=== PATIENT | female | born 1970 | race Caucasian/White ===

== ENCOUNTER 2017-10-27 18:47 | Inpatient (IN) | payer OTHER ==
[~2017-10-27] VITALS: Ht 162.6 cm; Wt 73.6 kg
[2017-10-27] MEDS ORDERED: synthroid (19:08)
[2017-10-27] MEDS ORDERED: cozaar (19:08)
[2017-10-27] MEDS ORDERED: NITROGLYCERIN SUBLINGUAL 0.4 MG BOTTLE OF 25. SL PRN ×2 (19:15→21:45)
[2017-10-27] MEDS ORDERED: ASPIRIN 81 MG TAB.CHEW PO ONE (19:15)
[2017-10-27 19:51] LABS: AMPHETAMINE/METHAMPHETAMINE NEG (NEG); BARBITURATES NEG (NEG); BENZODIAZEPINES NEG (NEG); CANNABINOIDS NEG (NEG); COCAINE NEG (NEG); METHADONE NEG (NEG); OPIATES NEG (NEG); PHENCYCLIDINE NEG (NEG)
--- NOTE | 2017-10-27 19:57 | PHYS DOC ---
General Chief Complaint: RIB PAIN Stated Complaint: CHEST/SIDE PAIN Time Seen by MD: 18:50 Source: patient Exam Limitations: no limitations Problems: History of Present Illness Initial Comments 47-year-old female comes in the emergency department complaining of left-sided chest pain. Patient is here with her spouse, they state that approximately 1815 they were walking in a hardware store when the patient developed sudden onset severe left lateral chest pain. Pain described as sharp and stabbing the moderate to severe in intensity and worse with deep breaths non-reproducible with positional changes. She had concomitant dyspnea and feeling of warmth no sweating no nausea arm or neck symptoms. She had surgery on her right leg about a month ago and is concerned for possible blood clot. Patient has hypertension she's never smoked, her father had his first WA before 50 years of age. Patient has no prior cardiology evaluation. Timing/Duration: other Severity: moderate Modifying Factors: improves with other Associated Symptoms: chest pain, shortness of breath Allergies: Coded Allergies: No Known Drug Allergies (Unverified , 10/27/17) Past Medical History Medical History: hypertension, other (hypothyroid) Surgical History: noncontributory Social History Smoker: non-smoker Alcohol: none Drugs: none Review of Systems Constitutional: denies chills, denies fever Respiratory: denies cough Cardiovascular: see HPI, denies palpitations, denies syncope Gastrointestinal: denies abdominal pain, denies nausea, denies vomiting Genitourinary: denies dysuria, denies frequency, denies hematuria Musculoskeletal: denies back pain, denies joint swelling, denies neck pain Psychiatric/Neurological: denies headache, denies numbness, denies paresthesia Hematologic/Lymphatic: denies blood clots, denies easy bleeding, denies easy bruising Physical Exam General Appearance: WD/WN, no apparent distress Eyes: bilateral eye normal inspection, bilateral eye PERRL, bilateral eye EOMI Ear, Nose, Throat: hearing grossly normal, normal ENT inspection Neck: non-tender, supple Respiratory: normal breath sounds, no respiratory distress Cardiovascular: normal peripheral pulses, regular rate, rhythm Gastrointestinal: non tender, soft Back: no CVA tenderness, no vertebral tenderness Extremities: normal range of motion, non-tender, normal inspection, no pedal edema, no calf tenderness, other (boot on right ankle/foot) Neurologic/Psychiatric: investigations manager II-XII nml as tested, no motor/sensory deficits, alert, normal mood/affect, oriented x 3 Skin: normal color, warm/dry Orders, Labs, Meds EKG: Normal sinus rhythm 91 bpm, no ST segment elevation interpreted by me. PA and lateral chest: No acute cardiopulmonary process noted interpreted by me Reassuring labs, d-dimer 1.2, CTA of the chest indicated PATIENT: COREY SOUSA ACCOUNT: [id number] : 1970 LOCATION: ER AGE: 47 SEX: F EXAM STATUS: PRE ER ORD. PHYSICIAN: RJ SEWELL DO REASON: L cp, elev d-dimer PROCEDURE: CT ANGIOGRAPHY CHEST Indication: Left-sided chest pain. Elevated d-dimer. TECHNIQUE: CT angiogram chest with 75 mL of Omnipaque 300 with multiplanar MIP reformats. COMPARISON: None FINDINGS: Slightly suboptimal PE study due to contrast bolus timing. However, there are no central, segmental or subsegmental filling defects in the pulmonary arteries. Heart is normal in size. No pericardial or pleural effusion. Clear neck base. No axillary, mediastinal or hilar adenopathy. Small sliding hiatal hernia. Visualized sections through the liver, spleen, adrenals, pancreas and kidneys within normal limits. Nonobstructing 5 mm stone in the left kidney. No focal consolidation or interstitial abnormalities. No suspicious bony lesion. IMPRESSION: 1. Slightly suboptimal PE study. However, no definite evidence of PE. 2. No pneumonia or signs of pulmonary infarct. 3. Partially visualized left kidney shows nonobstructing stone. Electronically signed by: Abelardo Mathews DO (10/27/2017 9:26 PM) [facility] DICTATED AND SIGNED BY: ABELARDO MATHEWS DO DATE: 10/27/172120 CC: GARRETT WAITE DO; RJ SEWELL DO ~ I discussed patient's symptoms and the likelihood that they were pleuritic in nature. Nevertheless observation admission indicated due to risk factors and symptoms patient is agreeable. 2138: Dr. Antony accepts inpatient telemetry admission for chest pain to follow serial cardiac enzymes and cardiology consultation in the morning. Departure Time of Disposition: 21:49 Disposition: 09 ADMITTED INPATIENT Condition: STABLE RJ SEWELL DO Oct 27, 2017 19:57
[2017-10-27 20:00] LABS: ALBUMIN 3.6 g/dL (3.4-5.0); ALBUMIN/GLOBULIN RATIO 0.9 (1.0-1.7); CREATININE 0.6 mg/dL (0.6-1.0); GFR 106.3; POTASSIUM 5.1 mmol/L (3.5-5.1); TOTAL BILIRUBIN 0.3 mg/dL (0.2-1.0); TOTAL PROTEIN 7.4 g/dL (6.4-8.2)
[2017-10-27 20:05] LABS: BILIRUBIN,URINE NEG (NEG); CLARITY,URINE CLEAR; COLOR,URINE STRAW; GLUCOSE,URINE NEG (NEG)
[2017-10-27 20:06] LABS: BACTERIA,URINE FEW /HPF (0-FEW); NITRITE,URINE NEG (NEG); SQUAMOUS EPITHELIAL CELL,UR MANY /LPF; UROBILINOGEN,URINE 0.2 mg/dL (0.2 mg/dL); WBC,URINE OCC /HPF (0-4)
[2017-10-27 20:13] LABS: BASO # 0.1 x10^3/uL (0.0-0.2); BASO % 1 % (0-3); EOS # 0.3 x10^3/uL (0.0-0.7); EOS % 3 % (0-3); HEMATOCRIT 38.5 % (36.0-47.0); HEMOGLOBIN 13.3 g/dL (12.0-15.5); LYMPH # 2.2 x10^3/uL (1.0-4.8); LYMPH % 23 % (24-48); MEAN CORPUSCULAR HEMOGLOBIN 30 pg (25-35); MEAN CORPUSCULAR HGB CONC 35 g/dL (31-37); MEAN CORPUSCULAR VOLUME 87 fL (79-100); MONO # 0.5 x10^3/uL (0.0-1.1); MONO % 5 % (0-9); NEUT # 6.7 x10^3uL (1.8-7.7); NEUT % 69 % (31-73); PLATELET COUNT 262 x10^3/uL (140-400); RED BLOOD COUNT 4.41 x10^6/uL (3.50-5.40); RED CELL DISTRIBUTION WIDTH 13.2 % (11.5-14.5); WHITE BLOOD COUNT 9.8 x10^3/uL (4.0-11.0)
[2017-10-27] MEDS ORDERED: IOHEXOL 300 MG/ML 75 ML VIAL. IV ONE (20:45)
--- NOTE | 2017-10-27 21:29 | RAD ---
Indication: Left-sided chest pain. Elevated d-dimer. TECHNIQUE: CT angiogram chest with 75 mL of Omnipaque 300 with multiplanar MIP reformats. COMPARISON: None FINDINGS: Slightly suboptimal PE study due to contrast bolus timing. However, there are no central, segmental or subsegmental filling defects in the pulmonary arteries. Heart is normal in size. No pericardial or pleural effusion. Clear neck base. No axillary, mediastinal or hilar adenopathy. Small sliding hiatal hernia. Visualized sections through the liver, spleen, adrenals, pancreas and kidneys within normal limits. Nonobstructing 5 mm stone in the left kidney. No focal consolidation or interstitial abnormalities. No suspicious bony lesion. IMPRESSION: 1. Slightly suboptimal PE study. However, no definite evidence of PE. 2. No pneumonia or signs of pulmonary infarct. 3. Partially visualized left kidney shows nonobstructing stone. Electronically signed by: Abelardo Mathews DO (10/27/2017 9:26 PM) [facility]
[2017-10-27] MEDS ORDERED: ONDANSETRON PF 4 MG/2 ML VIAL. IV PRN (21:45)
[2017-10-27] MEDS ORDERED: ACETAMINOPHEN 325 MG TABLET PO PRN (21:45)
[2017-10-27 22:30] VITALS: BP 111/77
--- NOTE | 2017-10-27 23:40 | NUR ---
The patient, COREY SOUSA, 47 y/o, F admitted by EMORY SILVERIO MD, was given written information regarding hospital policies, unit procedures and contact persons. Patient states that she had chest pain but it has sense went away. Patient has no cardiac history but her father of an UT in his 60's. Call light within reach and at bedside. Valuables were checked and left with patient.
[2017-10-27] MEDS ORDERED: LEVO100T5 PO (23:51)
[2017-10-27] MEDS ORDERED: ASPI81TA50 PO (23:52)
[2017-10-27] MEDS ORDERED: LOSA25TA PO (23:52)
[2017-10-28 05:19] VITALS: BP 127/81
[2017-10-28 06:25] LABS: BASO % 1 % (0-3); EOS # 0.4 x10^3/uL (0.0-0.7); EOS % 4 % (0-3); HEMATOCRIT 38.6 % (36.0-47.0); HEMOGLOBIN 13.2 g/dL (12.0-15.5); LYMPH # 2.4 x10^3/uL (1.0-4.8); LYMPH % 29 % (24-48); MEAN CORPUSCULAR HEMOGLOBIN 30 pg (25-35); MEAN CORPUSCULAR HGB CONC 34 g/dL (31-37); MEAN CORPUSCULAR VOLUME 88 fL (79-100); MONO # 0.4 x10^3/uL (0.0-1.1); MONO % 6 % (0-9); NEUT # 4.9 x10^3uL (1.8-7.7); NEUT % 61 % (31-73); PLATELET COUNT 256 x10^3/uL (140-400); RED BLOOD COUNT 4.37 x10^6/uL (3.50-5.40); RED CELL DISTRIBUTION WIDTH 13.6 % (11.5-14.5); WHITE BLOOD COUNT 8.1 x10^3/uL (4.0-11.0)
[2017-10-28 06:33] LABS: CALCIUM 8.6 mg/dL (8.5-10.1); CREATININE 0.6 mg/dL (0.6-1.0); GFR 106.3; POTASSIUM 3.7 mmol/L (3.5-5.1)
--- NOTE | 2017-10-28 06:56 | NUR ---
Consult called to Dr. Nguyễn's office. Answering service called.
[2017-10-28] MEDS ORDERED: LEVOTHYROXINE 100 MCG TABLET PO SCH (07:00)
--- NOTE | 2017-10-28 08:28 | RAD ---
2 view CXR: Clinical indications: Left lateral chest wall pain. Findings: No acute lung infiltrate or pleural effusion or pulmonary edema or lung mass or pneumothorax is seen. A pericardial cyst or fat pad is seen within the right cardiophrenic angle. The heart size, pulmonary vasculature, mediastinum and both hima are otherwise unremarkable. The osseous structures appear intact. Impression: No acute radiographic abnormality is seen.
[2017-10-28] MEDS ORDERED: LOSARTAN 25 MG TABLET. PO SCH (09:00)
[2017-10-28] MEDS ORDERED: ASPIRIN ENTERIC COATED 81 MG TABLET.DR. PO SCH (09:00)
[2017-10-28 10:47] VITALS: BP 103/70
[2017-10-28 15:13] VITALS: BP 113/73
--- NOTE | 2017-10-28 18:22 | RAD ---
CT study of the abdomen and pelvis without contrast HISTORY: Left-sided flank pain for 2 days. Left-sided chest pain. TECHNIQUE: Noncontrast helical CT scanning of the abdomen and pelvis was performed. Without contrast, the sensitivity to detect organ pathology and GI tract pathology is decreased. PQRS compliance Statement One or more of the following individualized dose reduction techniques were utilized for this study: 1. Automated exposure control 2. Adjustment of the mA and/or kV according to patient size 3. Use of iterative reconstruction technique COMPARISON: None available. FINDINGS: The liver and spleen and pancreas are homogeneous in appearance on this noncontrast study. The gallbladder is small. No extra hepatic biliary ductal dilatation is seen. No adrenal mass is evident. Bilateral renal stones are seen. No hydronephrosis or hydroureter or ureteral stone is seen. No focal aneurysmal dilatation of the abdominal aorta is seen. No enlarged abdominal or pelvic lymphadenopathy is evident. Varicosities around the left kidney and spleen are seen. No dominant cyst or mass of the right ovary seen. There is a dominant cyst of the left ovary which measures 3.3 cm in size. Urinary bladder wall is smooth. No obstructive bowel pattern is seen. The appendix is normal. Small hiatal hernia is seen. No free air or free fluid is seen. No mesenteric edema is evident. No lung base infiltrate is seen. No osteolytic process is seen. IMPRESSION: Bilateral nonobstructing renal stones. No hydronephrosis or hydroureter. 3.3 cm left ovarian cyst. Electronically signed by: Geoff Delong MD (10/28/2017 6:19 PM) [facility]
--- NOTE | 2017-10-28 18:22 | NUR ---
NSG NOTE; DISCHARGE VERBAL AND WRITTEN DISCHARGE INSTRUCTIONS GIVEN TO PT AND HER WITH VERBAL UNDERSTANDING DISCHARGE TO HOME VIA AMB AT 1620 ACCOMP BY
--- NOTE | 2017-10-28 18:35 | RAD ---
3 view left rib detail series and PA view chest x-ray HISTORY: Fall. Left-sided rib pain for 2 days FINDINGS: There are mild deformities of the lateral aspect of the fifth and sixth and seventh ribs. No radiolucent fracture line is seen otherwise. This may indicate nondisplaced rib fractures. Chest x-ray demonstrates no pleural effusion or pneumothorax or or acute lung infiltrate or pulmonary edema. Pericardial cyst or fat pad of the right cardiophrenic angle is evident. IMPRESSION: Nondisplaced left rib fractures. Electronically signed by: Geoff Delong MD (10/28/2017 6:31 PM) [facility]
--- NOTE | 2017-10-28 19:11 | SSS ---
ADMIT DATE: 10/27/2017 HISTORY OF PRESENT ILLNESS: The patient is a 47-year-old female patient who came with left-sided chest pain. She was walking in a hardware store when the patient developed sudden onset of severe left-sided chest pain. The pain is described as a sharp, stabbing, moderate to severe in intensity and worse with deep breath, nonreproducible with positional changes. She had concomitant dyspnea and feeling of warmth. No sweating, nausea or neck pain. She had had surgery to her right leg about a month ago and is concerned for a possible blood clot. The patient has hypertension, but has never smoked. Her father had first ID before 50 years of age and the patient has no prior cardiology evaluation. She was extensively investigated in the Emergency Room and basically has had 3 sets of cardiac enzymes that were negative. She had a chest x-ray that was unremarkable. CT scan of the chest was negative for PE, no pneumonia or sign of pulmonary infarct. Partially visualized left kidney shows nonobstructing stones. We did look for a rib view. The CT scan of the abdomen without contrast showed bilateral nonobstructing renal stones, no hydronephrosis or hydroureter. She has a 3.3 cm left ovarian cyst and basically, the pain has subsided and now to 1 point. So, I did a rib view, my reading is that there is no evidence of any rib fractures and the decision was made to discharge her home, to follow with her primary care physician. PAST MEDICAL HISTORY: Significant for hypothyroidism, hypertension and nephrolithiasis. PAST SURGICAL HISTORY: Significant for ankle stabilization and plantar release. ALLERGIES: She has no known drug allergies. MEDICATIONS: She is currently on following medications: She is on aspirin 81 mg once a day, levothyroxine 100 mcg once a day and losartan potassium 25 mg once a day. FAMILY HISTORY: She has 1 older sister who has CVA and hypertension. Her father in his 60s because of myocardial infarction. His first heart attack was before 50s. Her mother is still alive at age of 76 and healthy. SOCIAL HISTORY: She is , has 10 children. She has never smoked, does not drink alcohol. She is a [id number] mom. REVIEW OF SYSTEMS: The patient is unremarkable except for the fact that she has frequent UTIs. PHYSICAL EXAMINATION: GENERAL: When I saw her, she looked well and was clearly in no apparent respiratory distress, pale, but no jaundice, cyanosis, lymphadenopathy or thyromegaly. No jugular venous distension. No audible bruit. VITAL SIGNS: Her heart rate was 71, blood pressure 113/73, temperature was 98.2, respiratory rate 20, and oxygen saturation was 97%. HEENT: Showed normocephalic, atraumatic. NECK: Supple. HEART: Showed normal first and second heart sounds. No gallop, rub or murmur. CHEST: Clear to auscultation. No crepitation or rhonchi. She has point tenderness in the left side of the chest. ABDOMEN: Distended, soft, nontender. NEUROLOGIC: She is awake, alert, responding appropriately. Cranial nerves intact. EXTREMITIES: She moves extremities without difficulty. She ambulates without assistance or assistive devices. LABORATORY DATA: Showed that she had 3 sets of cardiac enzymes that were negative. Her serum sodium was 139, potassium 3.7, chloride 106, bicarbonate 26, anion gap of 7, BUN 11, creatinine 0.6, estimated GFR was 106 mL per minute. Her glucose was 88, calcium was 8.6. Her white cell count was 8100, hemoglobin 13.2, MCV 88, and platelet count 256,000. Her D-dimer was slightly elevated at 1.2. Urinalysis was unremarkable and was negative for nitrite, leukocyte esterase and very few bacteria. Her urine toxicology screen was negative. RADIOLOGICAL DATA: As I stated, the chest x-ray, CT scan of the chest and CT scan of the abdomen without contrast were all unremarkable and the CT scan of the abdomen without contrast showed nonobstructive stones in both kidneys. PLAN: The patient was discharged home to continue on her Synthroid and Cozaar as well as aspirin. FINAL DISCHARGE DIAGNOSES: 1. Atypical chest pain. No evidence of pulmonary embolism or myocardial infarction. 2. Hypothyroidism. 3. Hypertension. EMORY SILVERIO MD DR: CIARRA/heavenly JOB#: [id number] / [id number]
--- NOTE | 2017-10-29 11:24 | EKG ---
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
== END 2017-10-28 18:20 | disposition home or self-care (01) | DRG 313 ==
LOC: ER 18:47 → 1 SOUTH 21:43
PROVIDERS: ADMIT Internal Medicine; ATTEND Internal Medicine
DX: R07.89 Other chest pain (principal); E03.9 Hypothyroidism, unspecified; I10 Essential (primary) hypertension; N20.0 Calculus of kidney; N83.202 Unspecified ovarian cyst, left side; Z82.3 Family history of stroke; Z82.49 Family history of ischemic heart disease and other diseases of the circulatory system; Z87.440 Personal history of urinary (tract) infections; Z87.442 Personal history of urinary calculi
CPT/HCPCS: 36415; 71046; 71100; 71275; 74150; 80048; 80053; 80307; 81001; 82550; 83690; 83880; 84484; 85025; 85379; 93005; Q9967; 99285-25; G0479

== ENCOUNTER 2019-01-23 02:30 | Inpatient (IN) | payer OTHER ==
[~2019-01-23] VITALS: Ht 165.1 cm; Wt 79.4 kg
[~2019-01-23 02:30] MED LIST: ASPI81TA50 PO; LEVO100T5 PO; LOSA25TA PO; cozaar; synthroid
--- NOTE | 2019-01-23 02:40 | ED.ADGEN ---
Past History Past Medical History: High Cholesterol, Hypertension, Hypothyroid Past Medical History G10,Term 10 Past Surgical History: Other Past Surgical History Wrist, bilateral foot, ankle fx surgical repairs Smoking: Non-smoker Alcohol Use: None Drug Use: None Adult General Chief Complaint Chief Complaint ".. I was awaken from sleep with my heart pounding.. it seemed irregular... I ve had this before.. and did have a stress test in [place] approximately 2 years ago at that time they said the stress test turned out okay..".." I do have a family history cardiac disorders both father and sister.. " HPI HPI Patient is a 48 year old female dependent who presents with above hx and complaints increased dyspnea, chest discomfort and palpitations that awaken her from sleep. . Patient has had previous episodes of palpitations. No history of TX. No history of DVT or pulmonary embolisms. Patient has had a reported treadmill test approximately 2 years ago with no significant findings in [place].. Patient does have a history of hypertension, elevated lipids and hypothyroid. She described her chest discomfort as 5 out of 10. Patient has significant family history of father having a heart attack age 49 and cardiac bypass surgery age 50 . Sister has had TX age 40's. Her children have elevated lipids. Pt. does not smoke . No hx of excessive caffeine intake. No recent travel. No history of immune suppression. No specific ill contacts. She normally follows at [facility] with Dr. Smith. No family members have been overseas recently. Review of Systems Review of Systems Constitutional: Denies fever or chills [] Eyes: Denies change in visual acuity, redness, or eye pain [] HENT: Denies nasal congestion or sore throat [] Respiratory: Denies cough or shortness of breath [] Cardiovascular: No additional information not addressed in HPI [] GI: Denies abdominal pain, nausea, vomiting, bloody stools or diarrhea [] : Denies dysuria or hematuria [] Musculoskeletal: Denies back pain or joint pain [] Integument: Denies rash or skin lesions [] Neurologic: Denies headache, focal weakness or sensory changes [] Endocrine: Denies polyuria or polydipsia [] All other systems were reviewed and found to be within normal limits, except as documented in this note. Family History Family History Coronary artery disease with father and sister. Children have elevated Lipids. Current Medications Current Medications Current Medications Medications (Trade) Dose Ordered Sig/Subha Start Time Stop Time Status Last Admin Dose Admin Acetaminophen (Tylenol) 650 mg PRN Q4HRS PRN 01/23/19 04:15 01/24/19 04:14 Albuterol/ Ipratropium (Duoneb) 3 ml 1X ONCE 01/23/19 03:00 01/23/19 03:01 DC 01/23/19 02:53 3 ML Aspirin (Children'S Aspirin) 324 mg 1X ONCE 01/23/19 03:00 01/23/19 03:01 DC Lactated Ringer's 1,000 ml @ 100 mls/hr Q10H 01/23/19 03:00 01/23/19 12:59 01/23/19 03:15 100 MLS/HR Ondansetron HCl (Zofran) 4 mg PRN Q4HRS PRN 01/23/19 04:15 01/24/19 04:14 See Nursing for home meds. Allergies Allergies Allergies Coded Allergies Type Severity Reaction Last Updated Verified No Known Drug Allergies 10/27/17 No Physical Exam Physical Exam Constitutional: moderately acute distress, non-toxic appearance. [] HENT: Normocephalic, atraumatic, bilateral external ears normal, oropharynx moist, no oral exudates, nose normal. [] Eyes: PERRLA, EOMI, conjunctiva normal, no discharge. [] Neck: Normal range of motion, no tenderness, supple, no stridor. [] Cardiovascular:Heart rate regular rhythm, no murmur [] Lungs & Thorax: Bilateral breath sounds equal at apexes on auscultation [] Abdomen: Bowel sounds normal, soft, no tenderness, no masses, no pulsatile masses. [] Skin: Warm, dry, no erythema, no rash. [] Back: No tenderness, no CVA tenderness. [] Extremities: No tenderness, no cyanosis, no clubbing, ROM intact, no edema. [] Bilateral ankle scars. Rt. wrist scar. Neurologic: Alert and oriented X 3, normal motor function, normal sensory function, no focal deficits noted. [] Psychologic: Affect anxious, judgement normal, mood normal. [] Current Patient Data Vital Signs Vital Signs Date Time Temp Pulse Resp B/P (MAP) Pulse Ox O2 Delivery O2 Flow Rate FiO2 01/23/19 02:54 97 Room Air 01/23/19 02:30 98.1 89 22 Lab Results Laboratory Tests Test 01/23/19 02:45 01/23/19 03:55 White Blood Count 7.2 x10^3/uL (4.0-11.0) Red Blood Count 4.74 x10^6/uL (3.50-5.40) Hemoglobin 14.0 g/dL (12.0-15.5) Hematocrit 41.6 % (36.0-47.0) Mean Corpuscular Volume 88 fL (79-100) Mean Corpuscular Hemoglobin 29 pg (25-35) Mean Corpuscular Hemoglobin Concent 34 g/dL (31-37) Red Cell Distribution Width 12.7 % (11.5-14.5) Platelet Count 273 x10^3/uL (140-400) Neutrophils (%) (Auto) 53 % (31-73) Lymphocytes (%) (Auto) 38 % (24-48) Monocytes (%) (Auto) 6 % (0-9) Eosinophils (%) (Auto) 2 % (0-3) Basophils (%) (Auto) 0 % (0-3) Neutrophils # (Auto) 3.8 x10^3uL (1.8-7.7) Lymphocytes # (Auto) 2.8 x10^3/uL (1.0-4.8) Monocytes # (Auto) 0.5 x10^3/uL (0.0-1.1) Eosinophils # (Auto) 0.2 x10^3/uL (0.0-0.7) Basophils # (Auto) 0.0 x10^3/uL (0.0-0.2) Prothrombin Time 9.7 SEC (9.4-11.4) Prothrombin Time INR 1.0 (0.9-1.1) PTT 24 SEC (23-33) D-Dimer (Bri) 0.30 mg/L (0.00-0.50) Sodium Level 140 mmol/L (136-145) Potassium Level 3.4 mmol/L (3.5-5.1) L Chloride Level 102 mmol/L (98-107) Carbon Dioxide Level 26 mmol/L (21-32) Anion Gap 12 (6-14) Blood Urea Nitrogen 17 mg/dL (7-20) Creatinine 0.8 mg/dL (0.6-1.0) Estimated GFR (Cockcroft-Gault) 75.9 Glucose Level 107 mg/dL (70-99) H Calcium Level 9.1 mg/dL (8.5-10.1) Magnesium Level 1.7 mg/dL (1.8-2.4) L Total Bilirubin 0.6 mg/dL (0.2-1.0) Direct Bilirubin 0.1 mg/dL (0.0-0.2) Aspartate Amino Transferase (AST) 20 U/L (15-37) Alanine Aminotransferase (ALT) 26 U/L (14-59) Alkaline Phosphatase 81 U/L (46-116) Creatine Kinase 112 U/L (26-192) Troponin I Quantitative < 0.017 ng/mL (0-0.055) YK-Dun-Z-Type Natriuretic Peptide 17 pg/mL (0-124) Total Protein 7.5 g/dL (6.4-8.2) Albumin 3.6 g/dL (3.4-5.0) Lipase 244 U/L (73-393) Urine Collection Type Unknown Urine Color Yellow Urine Clarity Clear Urine pH 6.0 Urine Specific [place] <=1.005 Urine Protein Neg (NEG-TRACE) Urine Glucose (UA) Neg mg/dL (NEG) Urine Ketones (Stick) Neg mg/dL (NEG) Urine Blood Trace (NEG) Urine Nitrite Neg (NEG) Urine Bilirubin Neg (NEG) Urine Urobilinogen Dipstick 0.2 mg/dL (0.2 mg/dL) Urine Leukocyte Esterase Neg (NEG) Urine RBC 0 /HPF (0-2) Urine WBC Occ /HPF (0-4) Urine Squamous Epithelial Cells Few /LPF Urine Bacteria 0 /HPF (0-FEW) EKG EKG My interpretation EKG shows a sinus rhythm at 97 bpm. No acute findings of STEMI with contralateral changes.[] Radiology/Procedures Radiology/Procedures My interpretation of chest x-ray shows no acute cardiopulmonary findings. There might be some findings of bronchial cuffing. Film compared to prior chest x-ray on file 10/28/2017- no significant interval change. See[] formal report when available Course & Med Decision Making Course & Med Decision Making Pertinent Labs and Imaging studies reviewed. (See chart for details) Pt. reports no improvement from [place]. 3:20 Hrs. Pt. admitted to Dr. Antony with cardiology consult. Heart Score 3- 4. At time of Admission- chest discomfort has resolved. [] Final Impression Final Impression 1. Chest discomfort 2. Dyspnea 3. History of hypertension 4. Mild Hypokalemia 3.4 5. Hypomagnesium 1.7 6. Hx. of Palpitations 7. Hx. of Hypothyroid 8. Hx. of Elevated Lipids [] Dragon Disclaimer Dragon Disclaimer This electronic medical record was generated, in whole or in part, using a voice recognition dictation system. Discharge Summary Visit Information Final Diagnosis Problems Medical Problems: (1) Chest pain Status: Acute (2) Dyspnea Status: Acute (3) Palpitations Status: Acute Brief Hospital Course Allergies Allergies Coded Allergies Type Severity Reaction Last Updated Verified No Known Drug Allergies 10/27/17 No Vital Signs Vital Signs Date Time Temp Pulse Resp B/P (MAP) Pulse Ox O2 Delivery O2 Flow Rate FiO2 01/23/19 02:54 97 Room Air 01/23/19 02:30 98.1 89 22 Lab Results Laboratory Tests Test 01/23/19 02:45 01/23/19 03:55 White Blood Count 7.2 x10^3/uL (4.0-11.0) Red Blood Count 4.74 x10^6/uL (3.50-5.40) Hemoglobin 14.0 g/dL (12.0-15.5) Hematocrit 41.6 % (36.0-47.0) Mean Corpuscular Volume 88 fL (79-100) Mean Corpuscular Hemoglobin 29 pg (25-35) Mean Corpuscular Hemoglobin Concent 34 g/dL (31-37) Red Cell Distribution Width 12.7 % (11.5-14.5) Platelet Count 273 x10^3/uL (140-400) Neutrophils (%) (Auto) 53 % (31-73) Lymphocytes (%) (Auto) 38 % (24-48) Monocytes (%) (Auto) 6 % (0-9) Eosinophils (%) (Auto) 2 % (0-3) Basophils (%) (Auto) 0 % (0-3) Neutrophils # (Auto) 3.8 x10^3uL (1.8-7.7) Lymphocytes # (Auto) 2.8 x10^3/uL (1.0-4.8) Monocytes # (Auto) 0.5 x10^3/uL (0.0-1.1) Eosinophils # (Auto) 0.2 x10^3/uL (0.0-0.7) Basophils # (Auto) 0.0 x10^3/uL (0.0-0.2) Prothrombin Time 9.7 SEC (9.4-11.4) Prothromb Time International Ratio 1.0 (0.9-1.1) Activated Partial Thromboplast Time 24 SEC (23-33) D-Dimer (Bri) 0.30 mg/L (0.00-0.50) Sodium Level 140 mmol/L (136-145) Potassium Level 3.4 mmol/L (3.5-5.1) Chloride Level 102 mmol/L (98-107) Carbon Dioxide Level 26 mmol/L (21-32) Anion Gap 12 (6-14) Blood Urea Nitrogen 17 mg/dL (7-20) Creatinine 0.8 mg/dL (0.6-1.0) Estimated GFR (Cockcroft-Gault) 75.9 Glucose Level 107 mg/dL (70-99) Calcium Level 9.1 mg/dL (8.5-10.1) Magnesium Level 1.7 mg/dL (1.8-2.4) Total Bilirubin 0.6 mg/dL (0.2-1.0) Direct Bilirubin 0.1 mg/dL (0.0-0.2) Aspartate Amino Transf (AST/SGOT) 20 U/L (15-37) Alanine Aminotransferase (ALT/SGPT) 26 U/L (14-59) Alkaline Phosphatase 81 U/L (46-116) Creatine Kinase 112 U/L (26-192) Troponin I Quantitative < 0.017 ng/mL (0-0.055) LO-Sta-P-Type Natriuretic Peptide 17 pg/mL (0-124) Total Protein 7.5 g/dL (6.4-8.2) Albumin 3.6 g/dL (3.4-5.0) Lipase 244 U/L (73-393) Urine Collection Type Unknown Urine Color Yellow Urine Clarity Clear Urine pH 6.0 Urine Specific [place] <=1.005 Urine Protein Neg (NEG-TRACE) Urine Glucose (UA) Neg mg/dL (NEG) Urine Ketones (Stick) Neg mg/dL (NEG) Urine Blood Trace (NEG) Urine Nitrite Neg (NEG) Urine Bilirubin Neg (NEG) Urine Urobilinogen Dipstick 0.2 mg/dL (0.2 mg/dL) Urine Leukocyte Esterase Neg (NEG) Urine RBC 0 /HPF (0-2) Urine WBC Occ /HPF (0-4) Urine Squamous Epithelial Cells Few /LPF Urine Bacteria 0 /HPF (0-FEW) Brief Hospital Course Ms. Chadwick is a 48 old female who presented with chest discomfort and palpitations. Admitted to Dr. Antony with cardiology consult. Discharge Information Condition at Discharge: Improved, Stable Dischare Medications Current Medications Aspirin (Children'S Aspirin) 324 mg 1X ONCE PO ; Start 01/23/19 at 03:00; Stop 01/23/19 at 03:01; Status DC Lactated Ringer's 1,000 ml @ 100 mls/hr Q10H IV Last administered on 01/23/19at 03:15; Admin Dose 100 MLS/HR; Start 01/23/19 at 03:00; Stop 01/23/19 at 12:59 Albuterol/ Ipratropium (Duoneb) 3 ml 1X ONCE NEB Last administered on 01/23/19at 02:53; Admin Dose 3 ML; Start 01/23/19 at 03:00; Stop 01/23/19 at 03:01; Status DC Ondansetron HCl (Zofran) 4 mg PRN Q4HRS PRN IV NAUSEA/VOMITING; Start 01/23/19 at 04:15; Stop 01/24/19 at 04:14 Acetaminophen (Tylenol) 650 mg PRN Q4HRS PRN PO FEVER; Start 01/23/19 at 04:15; Stop 01/24/19 at 04:14 Active Scripts Active Reported Aspir-Low (Aspirin) 81 Mg Tablet. 1 Tab PO DAILY LAST DOSE GIVEN: DATE: TODAY TIME: AM NEXT DOSE DUE: DATE: TOMORROW TIME: AM Cozaar (Losartan Potassium) 25 Mg Tablet 25 Mg PO DAILY LAST DOSE GIVEN: DATE: TODAY TIME: AM NEXT DOSE DUE: DATE: TOMORROW TIME: AM Levothyroxine Sodium 100 Mcg Tablet 1 Tab PO DAILY07 LAST DOSE GIVEN: DATE: TODAY TIME: BEFORE BREAKFAST NEXT DOSE DUE: DATE: TOMORROW TIME: BEFORE BREAKFAST Dragon Disclaimer This chart was dictated in whole or in part using Voice Recognition software in a busy, high-work load, and often noisy Emergency Department environment. It may contain unintended and wholly unrecognized errors or omissions. DANIEL KAHN MD January 23, 2019 02:40
[2019-01-23 03:00] LABS: BASO % 0 % (0-3); EOS # 0.2 x10^3/uL (0.0-0.7); EOS % 2 % (0-3); HEMATOCRIT 41.6 % (36.0-47.0); LYMPH # 2.8 x10^3/uL (1.0-4.8); LYMPH % 38 % (24-48); MEAN CORPUSCULAR HEMOGLOBIN 29 pg (25-35); MEAN CORPUSCULAR HGB CONC 34 g/dL (31-37); MEAN CORPUSCULAR VOLUME 88 fL (79-100); MONO # 0.5 x10^3/uL (0.0-1.1); MONO % 6 % (0-9); NEUT # 3.8 x10^3uL (1.8-7.7); NEUT % 53 % (31-73); PLATELET COUNT 273 x10^3/uL (140-400); RED BLOOD COUNT 4.74 x10^6/uL (3.50-5.40); RED CELL DISTRIBUTION WIDTH 12.7 % (11.5-14.5); WHITE BLOOD COUNT 7.2 x10^3/uL (4.0-11.0)
[2019-01-23] MEDS ORDERED: ASPIRIN 81 MG TAB.CHEW PO ONE (03:00)
[2019-01-23] MEDS ORDERED: IPRATRPIUM/ALBUTEROL 0.5/2.5MG 3 ML NEBU. NEB ONE (03:00)
[2019-01-23] MEDS ORDERED: IV RINGERS SOLUTION,LACTATED 1,000 ML IV SCH (03:00)
--- NOTE | 2019-01-23 03:25 | RAD ---
CHEST PA LATERAL CLINICAL INDICATION: Dyspnea COMPARISON: None FINDINGS: Heart is normal in size. Bilateral central streaky opacities are seen. No pneumothorax or pleural effusion. No focal consolidation. Visualized bony thorax within normal limits. IMPRESSION: Findings suggests mild bronchitis. Electronically signed by: Abelardo Mathews DO (01/23/2019 3:21 AM) [facility]
[2019-01-23 03:34] LABS: ALBUMIN 3.6 g/dL (3.4-5.0); CALCIUM 9.1 mg/dL (8.5-10.1); CREATININE 0.8 mg/dL (0.6-1.0); DIRECT BILIRUBIN 0.1 mg/dL (0.0-0.2); GFR 75.9; MAGNESIUM 1.7 mg/dL (1.8-2.4); POTASSIUM 3.4 mmol/L (3.5-5.1); TOTAL BILIRUBIN 0.6 mg/dL (0.2-1.0); TOTAL PROTEIN 7.5 g/dL (6.4-8.2)
[2019-01-23] MEDS ORDERED: ACETAMINOPHEN 325 MG TABLET PO PRN (04:15)
[2019-01-23] MEDS ORDERED: ONDANSETRON PF 4 MG/2 ML VIAL. IV PRN (04:15)
[2019-01-23] MEDS ORDERED: POTASSIUM CHLORIDE 20 MEQ/15 ML ORAL LIQUID. PO ONE (04:30)
[2019-01-23] MEDS ORDERED: MAGNESIUM SULFATE 2GM 50 ML IV ONE (04:30)
[2019-01-23 05:04] LABS: BACTERIA,URINE 0 /HPF (0-FEW); BILIRUBIN,URINE NEG (NEG); CLARITY,URINE CLEAR; COLOR,URINE YELLOW; GLUCOSE,URINE NEG (NEG); NITRITE,URINE NEG (NEG); RBC,URINE 0 /HPF (0-2); SQUAMOUS EPITHELIAL CELL,UR FEW /LPF; UROBILINOGEN,URINE 0.2 mg/dL (0.2 mg/dL); WBC,URINE OCC /HPF (0-4)
--- NOTE | 2019-01-23 06:02 | EKG ---
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
[2019-01-23] MEDS ORDERED: LOSA50TA86 PO (06:36)
[2019-01-23] MEDS ORDERED: CRESTOR5 MG PO (06:36)
[2019-01-23] MEDS ORDERED: OMEP20TA63 PO (06:36)
[2019-01-23 06:40] VITALS: BP 101/70
--- NOTE | 2019-01-23 07:44 | PDOC2 ---
CARDIAC CONSULT DATE OF CONSULT Date Of Consult DATE: 01/23/19 TIME: 07:17 REASON FOR CONSULT Reason for Consult Chest pain Hypertension REFERRING PHYSICIAN Referring Physician Dr. Hidalgo SOURCE Source: Chart review, Patient HPI History of Present Illness This is a 48 yo female who presented secondary to chest tightness and palpit ations. Patient reports she woke up about 2 am with palpitations in her central chest. Had associated tightness in her central chest. Was slightly short of breath. No dizziness, diaphoresis, or nausea/vomiting. Symptoms lasted about 25 minutes and resolved without intervention. No recent fevers or illness. No orthopnea, LE edema, PND, or GARCIA. Does report history of palpitations occ asionally. Generally occurs at night. Had cardiac workup about 8 years ago that was unrevealing. Strong family history of premature CAD with father having CABG in his 50's and sister with CABG in her later 40's. Due to this history and symptoms, patient w as concerned so she cam into the ED for further evaluation and treatment. PAST MEDICAL HISTORY Cardiovascular: HTN, hyperipidemia Pulmonary: No pertinent hx GI: GERD Heme/Onc: No pertinent hx Hepatobiliary: No pertinent hx Psych: No pertinent hx Musculoskeletal: Osteoarthritis Rheumatologic: No pertinent hx Infectious disease: No pertinent hx ENT: No pertinent hx Renal/: No pertinent hx Endocrine: Hypothyroidism Dermatology: No pertinent hx PAST SURGICAL HISTORY Past Surgical History thyroid cyst removal, hernia repair, bilateral ankle surgery, right wrist surgery FAMILY HISTORY Family History: Coronary Artery Disease (father CABG 50's, sister CABG in late 40's), Diabetes, Hypertension SOCIAL HISTORY Smoke: No ALCOHOL: none Drugs: None Lives: with Family CURRENT MEDICATIONS Current Medications Current Medications Aspirin (Children'S Aspirin) 324 mg 1X ONCE PO ; Start 01/23/19 at 03:00; Stop 01/23/19 at 03:01; Status DC Lactated Ringer's 1,000 ml @ 100 mls/hr Q10H IV Last administered on 01/23/19at 03:15; Start 01/23/19 at 03:00; Stop 01/23/19 at 12:59 Albuterol/ Ipratropium (Duoneb) 3 ml 1X ONCE NEB Last administered on 01/23/19at 02:53; Start 01/23/19 at 03:00; Stop 01/23/19 at 03:01; Status DC Magnesium Sulfate 50 ml @ 25 mls/hr 1X ONCE IV Last administered on 01/23/19at 04:22; Start 01/23/19 at 04:30; Stop 01/23/19 at 06:29; Status DC Potassium Chloride (KCl Oral Soln) 40 meq 1X ONCE PO Last administered on 01/23/19at 04:22; Start 01/23/19 at 04:30; Stop 01/23/19 at 04:31; Status DC Ondansetron HCl (Zofran) 4 mg PRN Q4HRS PRN IV NAUSEA/VOMITING; Start 01/23/19 at 04:15; Stop 01/24/19 at 04:14 Acetaminophen (Tylenol) 650 mg PRN Q4HRS PRN PO FEVER; Start 01/23/19 at 04:15; Stop 01/24/19 at 04:14 Active Scripts Active Reported Crestor (Rosuvastatin Calcium) 5 Mg Tablet 1 Tab PO DAILY Prilosec Otc (Omeprazole Magnesium) 20 Mg Tablet.dr 1 Tab PO DAILY Cozaar (Losartan Potassium) 50 Mg Tablet 50 Mg PO DAILY Aspir-Low (Aspirin) 81 Mg Tablet.dr 1 Tab PO DAILY LAST DOSE GIVEN: DATE: TODAY TIME: AM NEXT DOSE DUE: DATE: TOMORROW TIME: AM Levothyroxine Sodium 100 Mcg Tablet 1 Tab PO DAILY07 LAST DOSE GIVEN: DATE: TODAY TIME: BEFORE BREAKFAST NEXT DOSE DUE: DATE: TOMORROW TIME: BEFORE BREAKFAST ALLERGIES Allergies: Coded Allergies: No Known Drug Allergies (Unverified , 10/27/17) ROS Review of Systems 14 point ROS conducted with pertinent positives noted above in HPI. PHYSICAL EXAM General: Alert, Oriented X3, Cooperative, No acute distress HEENT: Atraumatic, Mucous membr. moist/pink Lungs: Clear to auscultation, Normal air movement Heart: Regular rate, Normal S1, Normal S2, No murmurs Abdomen: Soft, No tenderness Extremities: No edema, Normal pulses Skin: No rashes, No breakdown Neuro: Normal speech, Sensation intact Psych/Mental Status: Mental status NL, Mood NL MUSCULOSKELETAL: Osteoarthritic changes both hands VITALS Vital Signs Vital Signs Date Time Temp Pulse Resp B/P (MAP) Pulse Ox O2 Delivery O2 Flow Rate FiO2 01/23/19 06:40 98.5 72 18 101/70 (80) 97 Room Air LABS LABS Laboratory Tests Test 01/23/19 02:45 01/23/19 03:55 White Blood Count 7.2 x10^3/uL (4.0-11.0) Red Blood Count 4.74 x10^6/uL (3.50-5.40) Hemoglobin 14.0 g/dL (12.0-15.5) Hematocrit 41.6 % (36.0-47.0) Mean Corpuscular Volume 88 fL (79-100) Mean Corpuscular Hemoglobin 29 pg (25-35) Mean Corpuscular Hemoglobin Concent 34 g/dL (31-37) Red Cell Distribution Width 12.7 % (11.5-14.5) Platelet Count 273 x10^3/uL (140-400) Neutrophils (%) (Auto) 53 % (31-73) Lymphocytes (%) (Auto) 38 % (24-48) Monocytes (%) (Auto) 6 % (0-9) Eosinophils (%) (Auto) 2 % (0-3) Basophils (%) (Auto) 0 % (0-3) Neutrophils # (Auto) 3.8 x10^3uL (1.8-7.7) Lymphocytes # (Auto) 2.8 x10^3/uL (1.0-4.8) Monocytes # (Auto) 0.5 x10^3/uL (0.0-1.1) Eosinophils # (Auto) 0.2 x10^3/uL (0.0-0.7) Basophils # (Auto) 0.0 x10^3/uL (0.0-0.2) Prothrombin Time 9.7 SEC (9.4-11.4) Prothromb Time International Ratio 1.0 (0.9-1.1) Activated Partial Thromboplast Time 24 SEC (23-33) D-Dimer (Bri) 0.30 mg/L (0.00-0.50) Sodium Level 140 mmol/L (136-145) Potassium Level 3.4 mmol/L (3.5-5.1) Chloride Level 102 mmol/L (98-107) Carbon Dioxide Level 26 mmol/L (21-32) Anion Gap 12 (6-14) Blood Urea Nitrogen 17 mg/dL (7-20) Creatinine 0.8 mg/dL (0.6-1.0) Estimated GFR (Cockcroft-Gault) 75.9 Glucose Level 107 mg/dL (70-99) Calcium Level 9.1 mg/dL (8.5-10.1) Magnesium Level 1.7 mg/dL (1.8-2.4) Total Bilirubin 0.6 mg/dL (0.2-1.0) Direct Bilirubin 0.1 mg/dL (0.0-0.2) Aspartate Amino Transf (AST/SGOT) 20 U/L (15-37) Alanine Aminotransferase (ALT/SGPT) 26 U/L (14-59) Alkaline Phosphatase 81 U/L (46-116) Creatine Kinase 112 U/L (26-192) Troponin I Quantitative < 0.017 ng/mL (0-0.055) AY-Xgn-W-Type Natriuretic Peptide 17 pg/mL (0-124) Total Protein 7.5 g/dL (6.4-8.2) Albumin 3.6 g/dL (3.4-5.0) Lipase 244 U/L (73-393) Urine Collection Type Unknown Urine Color Yellow Urine Clarity Clear Urine pH 6.0 Urine Specific [place] <=1.005 Urine Protein Neg (NEG-TRACE) Urine Glucose (UA) Neg mg/dL (NEG) Urine Ketones (Stick) Neg mg/dL (NEG) Urine Blood Trace (NEG) Urine Nitrite Neg (NEG) Urine Bilirubin Neg (NEG) Urine Urobilinogen Dipstick 0.2 mg/dL (0.2 mg/dL) Urine Leukocyte Esterase Neg (NEG) Urine RBC 0 /HPF (0-2) Urine WBC Occ /HPF (0-4) Urine Squamous Epithelial Cells Few /LPF Urine Bacteria 0 /HPF (0-FEW) ASSESSMENT/PLAN Assessment/Plan 1. Chest pain, atypical. Most probably related to #2 2. Palpitations; no arrhythmias on tele thus far 3. Hypertension; controlled 4. Hypothyroidism; on replacement therapy 5. GERD 6. Hypomagnesemia; replaced 7. Hypokalemia; replaced Recommendations Trend troponin TSH, lipid panel Echo to assess LV systolic function Monitor telemetry Resume ASA, statin Consider low-dose BB Outpatient event monitor Given risk factors and significant family history of premature CAD, will arrange outpatient stress test. NOE BAKER APRN January 23, 2019 07:44
[2019-01-23] MEDS ORDERED: PANTOPRAZOLE 40 MG TABLET. PO SCH (08:00)
[2019-01-23] MEDS ORDERED: LEVOTHYROXINE 100 MCG TABLET PO SCH (08:00)
[2019-01-23] MEDS ORDERED: ASPIRIN ENTERIC COATED 81 MG TABLET.DR. PO SCH (08:00)
[2019-01-23] MEDS ORDERED: LOSARTAN 50 MG TABLET. PO SCH (09:00)
[2019-01-23 11:02] VITALS: BP 115/80
--- NOTE | 2019-01-23 11:55 | CARD ---
MR#: [id number] Date of Study: 01/23/2019 Ordering Physician: NOE BAKER, Referring Physician: EMORY SILVERIO Tech: Justina Barbour RDCS APPROVED REPORT EXAM: Two-dimensional and M-mode echocardiogram with Doppler and color Doppler. Other Information Quality : Good INDICATION Palpitations Chest Pain 2D DIMENSIONS RVDd2.9 (2.9-3.5cm)Left Atrium(2D)3.0 (1.6-4.0cm) IVSd0.9 (0.7-1.1cm)Aortic Root(2D)2.6 (2.0-3.7cm) LVDd3.9 (3.9-5.9cm)PWd0.7 (0.7-1.1cm) LVDs2.5 (2.5-4.0cm)FS (%) 35.6 % SV44.3 mlLVEF(%)65.7 (>50%) Aortic Valve AoV Peak Ganga.137.3cm/sAoV VTI20.9cm AO Peak GR.7.5mmHgAO Mean GR.4mmHg LILA (VTI)3.15cm2 Mitral Valve MV E Lxbklpiw16.6cm/sMV DECEL [id number] MV A Ttvxqicf43.4cm/sE/A Ratio1.2 Tricuspid Valve TR P. Fgfmiiin989bm/sRAP IRLBZRFO8inCs TR Peak Gr.89toMnAGEO67jmCi LEFT VENTRICLE The left ventricle is normal size. There is normal left ventricular wall thickness. The left ventricu lar systolic function is normal and the ejection fraction is within normal range. The Ejection Fracti on is 60-65%. There is normal LV segmental wall motion. The left ventricular diastolic function and f illing is normal for age. RIGHT VENTRICLE The right ventricle is normal size. The right ventricular systolic function is normal. ATRIA The left atrium size is normal. The right atrium size is normal. The interatrial septum is intact wit h no evidence for an atrial septal defect or patent foramen ovale as noted on 2-D or Doppler imaging. AORTIC VALVE The aortic valve is normal in structure and function. Doppler and Color Flow revealed no significant aortic regurgitation. There is no significant aortic valvular stenosis. MITRAL VALVE The mitral valve is normal in structure and function. There is no evidence of mitral valve prolapse. There is no mitral valve stenosis. Doppler and Color Flow revealed no mitral valve regurgitation note d. TRICUSPID VALVE The tricuspid valve is normal in structure and function. Doppler and Color Flow revealed trace tricus pid regurgitation. The PA pressure was estimated at 25 mmHg. There is no tricuspid valve stenosis. PULMONIC VALVE The pulmonic valve is not well visualized. Doppler and Color Flow revealed no pulmonic valvular regur gitation. There is no pulmonic valvular stenosis. GREAT VESSELS The aortic root is normal in size. The ascending aorta is normal in size. The IVC is normal in size a nd collapses >50% with inspiration. PERICARDIAL EFFUSION There is no evidence of significant pericardial effusion. Critical Notification Critical Value: No <Conclusion> The left ventricular systolic function is normal and the ejection fraction is within normal range. Th e Ejection Fraction is 60-65%. There is normal LV segmental wall motion. Signed by : Brennan Machuca, Electronically Approved : 01/23/2019 11:54:39
[2019-01-23 14:53] VITALS: BP 113/75
--- NOTE | 2019-01-23 18:19 | SSS ---
ADMIT DATE: 01/23/2019 HISTORY OF PRESENT ILLNESS: The patient is a 48-year-old female patient, who came to the Emergency Room complaining of chest tightness, shortness of breath and palpitations. She reports that she woke up at about 2:00 a.m. with palpitation in her central chest, has associated tightness in her central chest, was slightly short of breath. Denied any dizziness, diaphoresis, no nausea, no vomiting. Her symptoms lasted about 25-30 minutes and resolved without intervention. Denied any orthopnea, paroxysmal nocturnal dyspnea. Denied any swelling of the legs or dyspnea on exertion. Did complain that she has occasional palpitation at night time. Had a cardiac workup about 8 years ago that was unremarkable. PAST MEDICAL HISTORY: Significant for hypothyroidism, hypertension, hyperlipidemia, osteoarthritis, and has had a stress test done about 8 years ago that was unrevealing. PAST SURGICAL HISTORY: Significant for thyroid cyst removal, umbilical hernia repair, right wrist fracture, status post open reduction and internal fixation, multiple surgeries on both feet. ALLERGIES: She has no known drug allergies. MEDICATIONS: She is currently on following medications: She is on Crestor 5 mg once a day, losartan potassium 50 mg once a day, aspirin 81 mg once a day, omeprazole for Prilosec 20 mg once a day and levothyroxine sodium 100 mcg daily. FAMILY HISTORY: She has 1 older sister, who has had myocardial infarctions in her 40s and still alive at age of 52. Her mother has had first heart attack at age of 52 and she was at the age of 60 because of myocardial infarction. Her father is still alive at age of 78 and seemingly healthy. SOCIAL HISTORY: She is , has 7 sons and 3 daughters. She does not smoke, drink alcohol or use any recreational drugs. 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 REVIEW OF SYSTEMS: Essentially unremarkable. PHYSICAL EXAMINATION: GENERAL: On examining her, she looked well and was clearly in no apparent respiratory distress. No pallor, jaundice, cyanosis, or thyromegaly. No jugular venous distension. No limb edema. VITAL SIGNS: Her heart rate was 74, blood pressure 115/80, temperature was 98.3, respiratory rate was 20, and oxygen saturation was 96%. HEAD, EYES, EARS, NOSE, AND THROAT: She is normocephalic, atraumatic. NECK: Supple. HEART: Showed normal first and second heart sounds. No gallop, rub or murmur. CHEST: Clear to auscultation. No crepitation or rhonchi. ABDOMEN: Distended, soft, nontender. No guarding or rigidity. No organomegaly. All hernial orifices intact. Bowel sounds normal. NEUROLOGIC: She was awake, alert, responding appropriately. All cranial nerves intact. EXTREMITIES: She moves extremities without difficulty. She ambulates without assistance or assistive devices. LABORATORY DATA: Showed a white cell count of 7200, hemoglobin 14, hematocrit 41, MCV 88 and platelet count of 173,000 with normal manual differential. Her chemistry showed serum sodium 140, potassium 3.4, chloride 102, bicarbonate 26, anion gap of 12, BUN 17, creatinine 0.8, estimated GFR was 76 mL per minute. Her glucose 107, calcium was 9.1, magnesium was 1.7. Total bilirubin, AST, ALT, alkaline phosphatase were normal. CK was 112, total protein was 7.5, albumin was 3.6. Lipase was 144. Her prothrombin time was 9.7, INR of 1, aPTT 24, and D-dimer was 0.3. She has had 3 sets of cardiac enzymes all of them were less than 0.017. Her serum triglycerides were high at 320. Total cholesterol was 230, LDL was 125, VLDL was 64, and HDL cholesterol was 41, the ratio was 5. Her TSH was 0.934. Urinalysis was essentially unremarkable and her EKG showed that was sinus rhythm to 97 beats per minute, no acute finding of ST segment elevation. She did have an echocardiogram showed that her left ventricular systolic function is normal with ejection fraction is within normal range. The ejection fraction is 60-65%. There is normal left ventricular segmental wall motion, so basically the patient came with palpitation, chest tightness and shortness of breath. She had 3 sets of cardiac enzymes, ruled out myocardial infarction. ASSESSMENT AND PLAN: The patient will be discharged with an outpatient event monitor as well as given the strong family history of premature coronary artery disease an outpatient stress test will be arranged. FINAL DISCHARGE DIAGNOSES: Chest pain, atypical; myocardial infarction ruled out, hypertension, hypothyroidism, dysphagia, gastroesophageal reflux disease, hypomagnesemia and hypokalemia, all resolved. EMORY SILVERIO MD DR: CIARRA/heavenly JOB#: [id number] / [id number]
[2019-01-23] MEDS ORDERED: ATORVASTATIN CALCIUM 20 MG TABLET PO SCH (21:00)
== END 2019-01-23 16:07 | disposition home or self-care (01) | DRG 313 ==
LOC: ER 02:30 → 1 SOUTH 04:15
PROVIDERS: ADMIT Internal Medicine; ATTEND Internal Medicine
DX: R07.89 Other chest pain (principal); E78.00 Pure hypercholesterolemia, unspecified; E03.9 Hypothyroidism, unspecified; E78.5 Hyperlipidemia, unspecified; Z83.3 Family history of diabetes mellitus; Z82.49 Family history of ischemic heart disease and other diseases of the circulatory system; E87.6 Hypokalemia; E83.42 Hypomagnesemia; M19.90 Unspecified osteoarthritis, unspecified site; I10 Essential (primary) hypertension; K21.9 Gastro-esophageal reflux disease without esophagitis; E11.9 Type 2 diabetes mellitus without complications; G47.33 Obstructive sleep apnea (adult) (pediatric)
CPT/HCPCS: 36415; 71046; 80048; 80061; 80076; 81001; 82550; 83690; 83735; 83880; 84443; 84484; 85025; 85379; 85610; 85730; 93005; 93306; 94640; 96361; 96365; J3475; J7120; J7620; 99285-25

== ENCOUNTER → 2019-08-26 | Outpatient (CLI) | payer OTHER ==
[~2019-08-26] MED LIST changes: +CRESTOR5 MG PO; +LOSA50TA86 PO; +OMEP20TA63 PO
--- NOTE | 2019-08-26 14:32 | RAD ---
Examination: BREAST LEFT History: Left breast pain. Patient has undergone mammogram 2 months ago at a different institution and this was reportedly negative. Symptoms of pain are since the exam 2 months ago. Comparison/Correlation: None. Patient reportedly has prior mammograms but these were performed at a different institution. Findings: Ultrasound imaging of the left upper outer quadrant was performed. At the 12:00 to 3:00 region, there is no mass, cyst, or edema identified. Impression: BI-RADS Category 1-negative. Electronically signed by: Donn Smith MD (08/26/2019 2:29 PM) [facility]
--- NOTE | 2019-08-26 16:58 | RAD ---
EXAM: Pelvic sonogram. HISTORY: Dysmenorrhea. TECHNIQUE: Transabdominal and transvaginal sonographic imaging of the pelvis was performed. COMPARISON: None. FINDINGS: The uterus measures 11.8 x 6.6 x 5.7 cm. The endometrial stripe measures 1.8 cm in thickness. The left ovary is obscured due to bowel gas. The right ovary is normal in size and demonstrates normal blood flow. There is a 3.3 cm dominant right ovarian cyst. There is no pelvic free fluid. There are nabothian cysts within the cervix. IMPRESSION: 1. Thickened endometrial stripe measuring 1.8 cm. Correlate with the phase of the patient's menstrual cycle. 2. 3.3 cm right ovarian cyst. 3. Obscured left ovary due to bowel gas. Electronically signed by: Fifi Mills MD (08/26/2019 4:55 PM) [facility]
== END | disposition home or self-care (01) ==
LOC: US 13:32
PROVIDERS: ATTEND Obstetrics & Gynecology
DX: N83.291 Other ovarian cyst, right side (principal); N88.8 Other specified noninflammatory disorders of cervix uteri; N64.4 Mastodynia
CPT/HCPCS: 76641; 76830; 76856